=== PATIENT | male | born 1960 | race Two or more races ===

== ENCOUNTER 2021-09-25 10:27 | Outpatient (CLI) | payer BC | END 2021-09-25 10:28 | disposition home or self-care (01) | LOC: CSHCT 10:27 | PROVIDERS: ATTEND Urology | DX: N40.1 Benign prostatic hyperplasia with lower urinary tract symptoms (principal); R31.29 Other microscopic hematuria; N32.89 Other specified disorders of bladder; K57.30 Diverticulosis of large intestine without perforation or abscess without bleeding | CPT/HCPCS: 74178 ==